=== PATIENT | male | born 1970 | race Caucasian/White ===

== ENCOUNTER 2021-02-23 11:15 | Outpatient (REF) | payer OTHER, SELFPAY ==
[2021-02-23 13:15] LABS: COVID-19 Test Negative (Negative)
== END 2021-02-23 11:16 | disposition home or self-care (01) ==
LOC: HO.LAB 11:15
PROVIDERS: Visit Provider Internal Medicine
DX: Z20.822 Contact with and (suspected) exposure to COVID-19 (principal)
CPT/HCPCS: 36415; 87635; C9803

== ENCOUNTER 2021-06-25 14:03 | Emergency (ER) | payer MEDICAID, SELFPAY ==
[2021-06-25 16:21] VITALS: BP 121/79; PULSE 63; RESP 16; TEMP 36.6; O2SAT 100; BMI 25.0
--- NOTE | 2021-06-25 16:42 | ED.LOWEXIN ---
HPI - Extremity Injury (Lower) General Chief Complaint: Extremity Injury, Lower Stated Complaint: abcess on foot Time Seen by Provider: 06/25/21 16:22 Source: patient Mode of arrival: ambulatory History of Present Illness HPI Narrative: 50-year-old male with no significant past medical history presenting to the ED complaining of painful lump to plantar aspect of left foot x months. Reports pain worse with ambulation/prolonged standing. Reports area growing since onset. Denies fever, chills, drainage from area, erythema, trauma/falls or injury MD complaint: foot injury Related Data Previous Rx's Medication Instructions Recorded naproxen 500 mg tablet 500 mg PO BID PRN 10 Days #20 tab 06/25/21 Allergies Allergy/AdvReac Type Severity Reaction Status Date / Time No Known Allergies Allergy Verified 06/25/21 16:48 Review of Systems Review of Systems: Constitutional: No Fever, No Chills Musculoskeletal: + joint pain, No Myalgias, + Joint Swelling Skin: No Skin Lesions, No rash Neuro: No Weakness, No Numbness, No Paresthesias Yes all other systems are reviewed and are negative [facility] Past Medical History Attestation statement: The following information was validated with the patient. Social History Social History Advance Directives: No Advance Directives Information Provided: No Physical Exam Vital Signs: Vital Signs: Last Vital Signs Temp 97.8 F 06/25/21 16:21 Pulse 63 06/25/21 16:21 Resp 16 06/25/21 16:21 BP 121/79 06/25/21 16:21 Pulse Ox 100 06/25/21 16:21 Body Mass Index 25.0 Const: General: cooperative, healthy appearing and no acute distress Orientation/consciousness: patient oriented x3 Limitations: no limitations HENMT: Head: Yes normal to inspection Ears: hearing grossly normal bilaterally General nose exam: Normal external nose present Face and sinus: Yes normal facial exam Eyes: General: appearance normal, both eyes and all related structures EOM: EOMs intact bilaterally Neck: Neck: Yes normal visual inspection Resp: Effort & Inspection: normal respiratory effort Cardio: Rate: regular rate Peripheral pulses: dorsalis pedis present Skin: Rashes: no rashes Wounds: no wounds Neuro: General: patient oriented x3, gait normal, tone normal and moves all extremities Gait exam (Neuro): Normal gait present Extrem: Other: Plantar aspect of left foot with small palpable cyst/lump. No fluctuance/induration. Tender to palpation. No erythema/streaking. FROM/NV intact Course Course Course Narrative: Bedside ultrasound without discernible fluid collection. Discussed with patient anti-inflammatories and need to follow-up with Podiatry Discharge Plan Discharge Clinical Impression: Foot pain Qualifiers: Laterality: left Qualified Code(s): M79.672 - Pain in left foot Patient Disposition: Home, Self-Care Instructions: Arthralgia (ED) Additional Instructions: You need to follow-up with Podiatry, call them tomorrow to make an appointment Naproxen as an anti-inflammatory/pain medication, take with food If lump is growing, becomes to look infected, is red, there is drainage from area please return to the ED Prescriptions: New naproxen 500 mg tablet 500 mg PO BID PRN (Reason: pain) 10 Days Qty: 20 RF: 0 Referrals: Yusuf Zendejas MD [Physician] - 2 days Stand Alone Forms: Work/School Release
== END 2021-06-25 17:04 | disposition home or self-care (01) ==
PROVIDERS: Emergency Provider Emergency Medicine
DX: M79.672 Pain in left foot (principal); Z79.899 Other long term (current) drug therapy
CPT/HCPCS: 99283

== ENCOUNTER 2021-07-01 12:45 | Emergency (ER) | payer MEDICAID, SELFPAY ==
[2021-07-01 12:49] VITALS: BP 109/66; PULSE 85; RESP 18; TEMP 36.6; O2SAT 99; BMI 25.0
[2021-07-01 15:27] VITALS: BP 107/64; PULSE 69; RESP 18; TEMP 37.1; O2SAT 96
--- NOTE | 2021-07-01 16:03 | ED.LOWEXIN ---
HPI - Extremity Injury (Lower) General Chief Complaint: Extremity Injury, Lower Stated Complaint: abscess Time Seen by Provider: 07/01/21 16:03 Source: patient Mode of arrival: ambulatory History of Present Illness HPI Narrative: 50-year-old male with no significant past medical history presenting to the ED complaining acute on chronic painful lump to plantar aspect of left foot x months. Patient was recently seen and treated in our ED for similar symptoms on 06/25, however reports lump appears erythematous now. Denies fever, chills, drainage from area, numbness, tingling MD complaint: foot injury Related Data Previous Rx's Medication Instructions Recorded naproxen 500 mg tablet 500 mg PO BID PRN 10 Days #20 tab 06/25/21 cephalexin 500 mg capsule 500 mg PO QID 7 Days #28 cap 07/01/21 Allergies Allergy/AdvReac Type Severity Reaction Status Date / Time No Known Allergies Allergy Verified 06/25/21 16:48 Review of Systems Review of Systems: Constitutional: No Fever, No Chills ENT/Mouth: No Ear Pain, No Nasal Congestion, No sore throat,No Swallowing Difficulty Cardiovascular: No Chest Pain, No SOB Respiratory: No Cough Gastrointestinal: No Nausea, No Abdominal pain Musculoskeletal: + joint pain, No Myalgias, No Joint Swelling Skin: + Skin Lesions, No rash Neuro: No Weakness, No Numbness, No Paresthesias Yes all other systems are reviewed and are negative [facility] Past Medical History Attestation statement: The following information was validated with the patient. Medical History (Updated 07/01/21 @ 16:07 by TAWANA Morel) Patient denies medical problems Social History Social History Advance Directives: No Advance Directives Information Provided: No Physical Exam Vital Signs: Vital Signs: Last Vital Signs Temp 98.8 F 07/01/21 15:27 Pulse 69 07/01/21 15:27 Resp 18 07/01/21 15:27 BP 107/64 07/01/21 15:27 Pulse Ox 96 07/01/21 15:27 Body Mass Index 25.0 Const: General: cooperative and healthy appearing Orientation/consciousness: patient oriented x3 Limitations: no limitations HENMT: Head: Yes normal to inspection Ears: hearing grossly normal bilaterally General nose exam: Normal external nose present Face and sinus: Yes normal facial exam Eyes: General: appearance normal, both eyes and all related structures EOM: EOMs intact bilaterally Neck: Neck: Yes normal visual inspection Resp: Effort & Inspection: normal respiratory effort and no respiratory distress Cardio: Rate: regular rate Peripheral pulses: dorsalis pedis present Skin: Other: Plantar aspect of left foot with tender cystic lump. No fluctuance/induration. Slight overlying erythema. No cellulitis. No warmth. Rashes: no rashes Wounds: no wounds Neuro: General: patient oriented x3 Gait exam (Neuro): Normal gait present Extrem: General: Yes normal to inspection MDM - Extremity Injury (Lower) MDM Narrative Medical decision making narrative: 50-year-old male with no significant past medical history presenting to the ED complaining acute on chronic painful lump to plantar aspect of left foot x months. On exam VSS, NAD/well-appearing, physical exam as above. Discussed with patient needs to follow-up with Podiatry. Will treat with antibiotics Medical Records Attestation: I reviewed the patient's medical records. 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
== END 2021-07-01 16:23 | disposition home or self-care (01) ==
PROVIDERS: Emergency Provider Emergency Medicine
DX: L72.9 Follicular cyst of the skin and subcutaneous tissue, unspecified (principal); M79.672 Pain in left foot; Z79.899 Other long term (current) drug therapy
CPT/HCPCS: 99283; 99284

== ENCOUNTER 2021-07-26 11:02 | Outpatient (REF) | payer MEDICAID, SELFPAY ==
[2021-07-26 12:09] LABS: Alanine Aminotransferase 17 U/L (0-40); Albumin Level 4.2 g/dL (3.5-5.0); Alkaline Phosphatase 63 U/L (39-117); Anion Gap 10 (12-20); Aspartate Amino Transferase 19 U/L (5-37); Bilirubin Total 0.4 mg/dL (0.0-1.0); Blood Urea Nitrogen 22 mg/dL (9-16); Calcium 9.6 mg/dL (8.4-10.2); Carbon Dioxide 29 mmol/L (22-29); Chloride 107 mmol/L (96-108); Cholesterol 194 mg/dL; Estimated Glomerular Filt Rate > 60; Glucose Random 102 mg/dL (60-115); HDL Cholesterol 53 mg/dL; LDL Cholesterol Calculated 128 mg/dl; Potassium 4.7 mmol/L (3.3-5.1); Sodium 141 mmol/L (135-145); Total Protein 6.8 g/dL (6.5-8.0); Triglycerides 68 mg/dL
[2021-07-26 12:31] LABS: Thyroid Stimulating Hormone 1.18 uIU/mL (0.32-4.0)
[2021-07-27 04:58] LABS: ~HepC Num1 0.07 S/CO (0.00-0.79); ~Hepatitis C Antibody Nonreactive (Nonreactive)
== END 2021-07-26 11:03 | disposition home or self-care (01) ==
LOC: HO.LAB 11:02
PROVIDERS: PCP Internal Medicine; Visit Provider Internal Medicine
DX: Z00.00 Encounter for general adult medical examination without abnormal findings (principal); D17.9 Benign lipomatous neoplasm, unspecified; F14.21 Cocaine dependence, in remission; F32.89 Other specified depressive episodes; Z72.0 Tobacco use
CPT/HCPCS: 36415; 80053; 80061; 84443; 86803

== ENCOUNTER 2022-03-11 15:43 | Outpatient (REF) | payer MEDICAID, SELFPAY ==
--- NOTE | ~2022-03-11 | XR_ITS ---
EXAMINATION: XR ANKLE, LEFT XR ANKLE, RIGHT CLINICAL INFORMATION: Pain in both ankles. COMPARISON: None. TECHNIQUE: AP, oblique, lateral radiographs of each ankle. FINDINGS: On the left, the bones are intact and normal in mineralization and ossification. The mortise is intact and the ankle is in alignment. On lateral radiograph, there is a prominent osteophyte/hypertrophy of the talar ridge as well as a small calcaneal heel spur. There is a small amount of soft tissue edema about the ankle, medial greater than lateral. On the right, the bones are intact and normal in mineralization and ossification. Mortise is intact. Ankle is in alignment. Incidental note of a relatively large os trigonum. On lateral radiograph, there are prominent osteophytes/hypertrophy of the talar ridge as well as a small calcaneal heel spur. There is a small amount of soft tissue edema about the ankle, medial greater than lateral. XR/XR ankle LT min 3V IMPRESSION: No acute bony abnormality of the ankles. Mild bilateral soft tissue edema, medial greater than lateral about each ankle as well as either osteophyte formation versus hypertrophy along the talar ridge which is nonspecific, though can be seen in the setting of degenerative change or arthritis.
--- NOTE | ~2022-03-11 | XR_ITS ---
EXAMINATION: XR ANKLE, LEFT XR ANKLE, RIGHT CLINICAL INFORMATION: Pain in both ankles. COMPARISON: None. TECHNIQUE: AP, oblique, lateral radiographs of each ankle. FINDINGS: On the left, the bones are intact and normal in mineralization and ossification. The mortise is intact and the ankle is in alignment. On lateral radiograph, there is a prominent osteophyte/hypertrophy of the talar ridge as well as a small calcaneal heel spur. There is a small amount of soft tissue edema about the ankle, medial greater than lateral. On the right, the bones are intact and normal in mineralization and ossification. Mortise is intact. Ankle is in alignment. Incidental note of a relatively large os trigonum. On lateral radiograph, there are prominent osteophytes/hypertrophy of the talar ridge as well as a small calcaneal heel spur. There is a small amount of soft tissue edema about the ankle, medial greater than lateral. XR/XR ankle RT min 3V IMPRESSION: No acute bony abnormality of the ankles. Mild bilateral soft tissue edema, medial greater than lateral about each ankle as well as either osteophyte formation versus hypertrophy along the talar ridge which is nonspecific, though can be seen in the setting of degenerative change or arthritis.
== END 2022-03-11 15:44 | disposition home or self-care (01) ==
LOC: HO.XRAY 15:43
PROVIDERS: PCP Internal Medicine; Visit Provider Internal Medicine
DX: M25.572 Pain in left ankle and joints of left foot (principal); M25.571 Pain in right ankle and joints of right foot
CPT/HCPCS: 73610

== ENCOUNTER 2022-06-26 19:25 | Outpatient (REF) | payer MEDICAID, SELFPAY ==
--- NOTE | ~2022-06-26 | MR_ITS ---
EXAMINATION: MRI FOOT WITHOUT CONTRAST, RIGHT CLINICAL INFORMATION: Right foot pain and swelling. Evaluate for ligament tear. COMPARISON: Right ankle radiographs dated 03/11/2022. TECHNIQUE: Multisequence MR imaging of the right foot was obtained without contrast on a high field strength scanner. FINDINGS: BONE AND ARTICULAR CARTILAGE: Os trigonum with minimal degenerative change. No marrow edema or evidence of acute osseous injury. Small plantar calcaneal spur. No stress reaction or fracture. No talar osteochondral lesion. ACHILLES TENDON: Intact. OTHER TENDONS: Intact. LIGAMENTS: No evidence of acute ligament injury. JOINT FLUID AND SOFT TISSUES: Joint recess along the lateral aspect of the talonavicular joint measuring up to 1.9 cm in craniocaudal dimension. Prominent circumferential subcutaneous edema extending along the dorsum of the foot. No organized fluid collection or abscess formation. PLANTAR FASCIA: Focal low T1/T2 signal thickening at the mid point of the patellar fascial band measuring up to 1.9 x 1.3 x 0.4 cm in the region of the overlying skin marker. More proximally and slightly more laterally there is an additional focus of thickening measuring up to 0.5 cm in ML dimension. Findings likely represent plantar fascial fibrosis. No measurable tear. SINUS TARSI AND TARSAL TUNNEL: Patent. MR/MR foot RT wo con IMPRESSION: 1. Findings consistent with plantar fascial fibromatosis with the largest area measuring up to 1.9 cm in the region of the overlying skin marker. 2. No prominent circumferential soft tissue edema extending along the dorsum of the midfoot. No organized fluid collection or abscess formation. 3. Synovial recess along the lateral aspect of the talonavicular joint measuring up to 1.9 cm. 4. Os trigonum with mild degenerative change.
== END 2022-06-26 19:26 | disposition home or self-care (01) ==
LOC: HO.MRI 19:25
PROVIDERS: Visit Provider Internal Medicine
DX: R60.0 Localized edema (principal)
CPT/HCPCS: 73718

== ENCOUNTER 2022-11-13 12:13 | Outpatient (REF) | payer MEDICAID, SELFPAY ==
[2022-11-13 12:31] LABS: MANUAL DIFF FLAG NO
[2022-11-13 13:56] LABS: Basophils Percent Auto 0.3 % (0-2); Eosinophils Percent Auto 0.3 % (0-4); Hematocrit 36.4 % (42.0-52.0); Hemoglobin 11.9 g/dl (14.0-18.0); Imm Gran Abs Auto 0.03 X10*3/uL (0.00-0.03); Imm Gran Pct Auto 0.3 % (0.0-0.4); Lymphocytes Absolute Auto 1.3 X10*3/uL (1.2-4.9); Lymphocytes Percent Auto 14.7 % (20-40); Mean Corpuscular HGB Conc 32.7 g/dl (31.0-36.0); Mean Corpuscular Hemoglobin 31.2 pg (27.0-33.0); Mean Corpuscular Volume 95.5 fL (80.0-98.0); Mean Platelet Volume 8.4 fL (9.4-12.4); Monocytes Absolute Auto 0.8 X10*3/uL (0.1-1.2); Monocytes Percent Auto 9.1 % (2-11); Neutrophils Absolute Auto 6.5 x10*3/uL (2.0-8.3); Neutrophils Percent Auto 75.3 % (45-73); Platelet Count 269 X10*3/uL (160-400); Red Blood Count 3.81 X10*6/uL (4.60-5.80); Red Cell Distribution Width 12.1 % (11.0-16.0); White Blood Count 8.6 X10*3/uL (4.8-10.8)
[2022-11-13 14:45] LABS: Alanine Aminotransferase 20 U/L (0-40); Albumin Level 4.3 g/dL (3.5-5.0); Alkaline Phosphatase 72 U/L (39-117); Anion Gap 12 (12-20); Aspartate Amino Transferase 20 U/L (5-37); Bilirubin Total 0.4 mg/dL (0.0-1.0); Blood Urea Nitrogen 18 mg/dL (9-16); Carbon Dioxide 29 mmol/L (22-29); Chloride 102 mmol/L (96-108); Cholesterol 205 mg/dL; Estimated Glomerular Filt Rate > 60; Glucose Random 113 mg/dL (60-115); HDL Cholesterol 52 mg/dL; LDL Cholesterol Calculated 135 mg/dl; Potassium 4.3 mmol/L (3.3-5.1); Prostate Specific Antigen 0.35 ng/mL (<0.05-4.0); Sodium 139 mmol/L (135-145); Thyroid Stimulating Hormone 1.93 uIU/mL (0.32-4.0); Total Protein 6.7 g/dL (6.5-8.0); Triglycerides 91 mg/dL
== END 2022-11-13 12:14 | disposition home or self-care (01) ==
LOC: HO.LAB 12:13
PROVIDERS: PCP Internal Medicine; Visit Provider Internal Medicine
DX: Z00.00 Encounter for general adult medical examination without abnormal findings (principal); Z12.5 Encounter for screening for malignant neoplasm of prostate; F32.9 Major depressive disorder, single episode, unspecified; M72.2 Plantar fascial fibromatosis; Z72.0 Tobacco use
CPT/HCPCS: 36415; 80053; 80061; 84153; 84443; 85025

== ENCOUNTER 2023-08-20 13:53 | Outpatient (REF) | payer MEDICAID, SELFPAY ==
[2023-08-20 15:39] LABS: Alanine Aminotransferase 22 U/L (0-40); Alkaline Phosphatase 76 U/L (39-117); Anion Gap 15 (12-20); Aspartate Amino Transferase 19 U/L (5-37); Bilirubin Total 0.3 mg/dL (0.0-1.0); Blood Urea Nitrogen 18 mg/dL (9-16); Calcium 9.2 mg/dL (8.4-10.2); Carbon Dioxide 27 mmol/L (22-29); Chloride 101 mmol/L (96-108); Cholesterol 134 mg/dL (<200); Estimated Glomerular Filt Rate > 60; Glucose Random 112 mg/dL (60-115); HDL Cholesterol 38 mg/dL (>40); LDL Cholesterol Calculated 82 mg/dL (<100); Potassium 4.5 mmol/L (3.3-5.1); Sodium 138 mmol/L (135-145); Triglycerides 74 mg/dL (<150)
[2023-08-20 15:57] LABS: Prostate Specific Antigen Scr 0.49 ng/mL (<0.05-4.0)
== END 2023-08-20 13:54 | disposition home or self-care (01) ==
LOC: HO.LAB 13:53
PROVIDERS: PCP Internal Medicine; Visit Provider Internal Medicine
DX: E78.00 Pure hypercholesterolemia, unspecified (principal); M25.562 Pain in left knee; M72.2 Plantar fascial fibromatosis; N40.0 Benign prostatic hyperplasia without lower urinary tract symptoms; Z72.0 Tobacco use
CPT/HCPCS: 36415; 80053; 80061; 84153

== ENCOUNTER 2023-09-16 13:20 | Outpatient (AMB) | payer MEDICAID, SELFPAY ==
--- NOTE | 2023-09-16 13:30 | A.OFFVIS_ITS ---
Intake Vital Signs 09/16/23 13:31 Height 5 ft 4 in Weight 170 lb BMI 29.2 BP 141/76 H Blood Pressure Location Lt brachial Position Sitting Pulse 77 Intake Visit Reasons: Colonoscopy Screening Intake Note: Patient new consult for 1st pre colonoscopy screening Patient denies any GI issues. 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 Accompanied by: Self / Same As Patient Allergies No Known Allergies Allergy (Verified 09/16/23 13:30) Medication List - Last Reconciled 09/16/23 by Cristina Meraz PA-C atorvastatin 20 mg PO BEDTIME bupropion HCl 300 mg PO DAILY naproxen 500 mg PO BID PRN 10 days trazodone 50 mg PO BEDTIME HPI HPI Comments History of Present Illness Details A 52 y/o male index screening colonoscopy Bowels are normal Appetite is good now -was very depressed - now bettter- so eating a bit better No N/V D abdominal pain, hematemesis, hematochezia fever or chills No known family history of GI cancer PFSH Medical History (Updated 09/17/23 @ 12:49 by Cristina Meraz PA-C) Depression HLD (hyperlipidemia) Surgical History No pertinent past surgical history Social History Household Members: Family Alcohol intake: former Patient Tobacco Use Status: Current everyday Tobacco user Use of substances other than those prescribed or required for medical reasons: No Review of Systems Const All systems reviewed & are unremarkable except as noted in HPI and below Card Denies chest pain and Denies dyspnea Resp Denies dyspnea GI Denies abdominal pain, Denies heartburn, Denies nausea and Denies vomiting Physical Exam Vital Signs: Last Vital Signs Pulse 77 09/16/23 13:31 BP 141/76 H 09/16/23 13:31 BMI result Body Mass Index 29.2 Const General: cooperative, healthy appearing, comfortable and no acute distress Orientation/consciousness: patient oriented x3 Limitations: no limitations Eyes Sclerae: sclerae normal Resp Effort & Inspection: normal respiratory effort and able to speak in complete sentences Auscultation: clear to auscultation bilaterally, no rales, no rhonchi and no wheezes Cardio Rate: regular rate Rhythm: regular rhythm Heart sounds: S1 normal heart sound present and S2 normal heart sound present GI Palpation (GI): Soft to palpation and nontender Auscultation: normal bowel sounds Skin General skin exam: no rashes or lesions noted Neuro General: patient oriented x3 Extrem General: Yes full ROM Psych Appearance: well kempt Mental Status: mental status grossly normal Speech and movement: Normal speech and movement present and Clear speech present Affect: normal affect Attitude: cooperative Thought process: Normal thought process present Thought content: Normal thought content present Insight: Good insight present (Psych) Judgement: Good judgement present (Psych) Assessment & Plan Assessment & Plan (1) Encounter for screening colonoscopy: Comment: Pleasant 52-year-old Gent no GI complaints Code(s): Z12.11 - Encounter for screening for malignant neoplasm of colon Plan: Index screening colonoscopy Plan Index screening colonoscopy MiraLax Gatorade Orders: Orders Colonoscopy - GI Use Only 09/16/23 Z12.11 - Encounter for screening for malignant neoplasm of colon Medications: New polyethylene glycol 3350 (Miralax) Take as directed by mouth the day before your procedure. 238 grams PO ONCE 238 grams 0RF laxative effect 1 day bisacodyl (Dulcolax (bisacodyl)) Day before procedure, prep day Take 4 tablets by mouth upon awakening followed by large glass of water 20 mg (4 x 5 mg) PO ONCE 4 tabs 0RF colonoscopy prep 1 day Z12.11 - Encounter for screening for malignant neoplasm of colon Patient Instructions: Index screening MG prep Needs escorted due to anesthesia Rare risks discussed Encouraged to call questions or concerns Coding Level of Care Code New Pt Level 3 (61121) Diagnoses Encounter for screening colonoscopy Z12.11 Time Spent (min) 25
[2023-09-16 13:31] VITALS: BP 141/76; PULSE 77; BMI 29.2
== END 2023-09-16 14:12 | disposition home or self-care (01) ==
PROVIDERS: PCP Internal Medicine; Visit Provider Physician Assistant
DX: Z12.11 Encounter for screening for malignant neoplasm of colon (principal); Z01.818 Encounter for other preprocedural examination
CPT/HCPCS: 99203

== ENCOUNTER → 2023-09-16 13:20 | Outpatient (BNVA) | payer MEDICAID, SELFPAY | PROVIDERS: PCP Internal Medicine; Visit Provider Physician Assistant | DX: Z12.11 Encounter for screening for malignant neoplasm of colon (principal) | CPT/HCPCS: 99212 ==